=== PATIENT | female | born 1955 | race Caucasian/White ===

== ENCOUNTER 2017-10-26 08:00 | Emergency (ER) | payer OTHER ==
[~2017-10-26] VITALS: Ht 172.7 cm; Wt 101.6 kg
[~2017-10-26 08:00] MED LIST: DIAZ2 PO; ESTR2 PO; LEVSOD112 PO; METPRE4DP PO; NAPR500 PO; Norco 5-325 Ta1 EACH PO; OLME5TAB; SIMV40 PO; TELM40 PO
== END 2017-10-26 08:26 | disposition home or self-care (01) ==
LOC: ER 08:00
DX: J02.9 Acute pharyngitis, unspecified (principal); Z88.8 Allergy status to other drugs, medicaments and biological substances; Z79.899 Other long term (current) drug therapy; E03.9 Hypothyroidism, unspecified; E78.00 Pure hypercholesterolemia, unspecified; I10 Essential (primary) hypertension
CPT/HCPCS: 87081; 99283

== ENCOUNTER 2023-09-02 07:15 | Observation (INO) | payer OTHER ==
[~2023-09-02] VITALS: Ht 172.7 cm; Wt 108.0 kg
[2023-09-02] VITALS (9 sets, daily range): BP systolic 139–161; BP diastolic 71–86
[~2023-09-02 07:15] MED LIST changes: +FISH OIL + D31 EACH; +GABA300; +HYDR1TAB94; +Omeprazole20 M1
[2023-09-02] MEDS ORDERED: VALS80 PO (07:47)
[2023-09-02] MEDS ORDERED: Amlodipine Bes2.5 MG PO (07:47)
[2023-09-02] MEDS ORDERED: GABA300 PO (07:47)
[2023-09-02] MEDS ORDERED: PANT20 PO (07:48)
[2023-09-02] MEDS ORDERED: ATOR20 PO (07:48)
[2023-09-02] MEDS ORDERED: VAGIFEM10 MCG VAG (07:49)
[2023-09-02] MEDS ORDERED: SOLI5 PO (07:49)
[2023-09-02] MEDS ORDERED: VITAMIN D350 MC3 PO (07:50)
[2023-09-02] MEDS ORDERED: FISH OIL 1,0001 EA10 PO (07:51)
[2023-09-02] MEDS ORDERED: PRENATAL TABLE1 EAC2 PO (07:51)
[2023-09-02] MEDS ORDERED: ZYRTEC10 M1 PO (07:51)
[2023-09-02] MEDS ORDERED: DONEPEZIL HCL10 MG PO (07:52)
[2023-09-02] MEDS ORDERED: TRAZ50 PO (07:52)
[2023-09-02] MEDS ORDERED: MIRALAX17 GM PO (07:52)
[2023-09-02] MEDS ORDERED: Ketorolac Tromethamine 30mg Vial IV ONE (07:55)
[2023-09-02] MEDS ORDERED: NS 1,000 ML IV SCH (07:55)
[2023-09-02 08:00] LABS: Source, Urine Clean Catch
[2023-09-02 08:03] LABS: BASOPHILS ABSOLUTE AUTO 0.07 K/mm3 (0.00-0.23); BASOPHILS PERCENT AUTO 1 % (0-2); EOSINOPHILS ABSOLUTE AUTO 0.32 K/mm3 (0.00-0.68); EOSINOPHILS PERCENT AUTO 5 % (0-6); Hematocrit 41.2 % (33.0-51.0); Hemoglobin 14.3 g/dL (11.5-16.0); IMMATURE GRAN ABSOLUTE AUTO 0.02 K/mm3 (0.00-0.10); IMMATURE GRAN PERCENT AUTO 0 % (0-1); LYMPHOCYTES ABSOLUTE AUTO 1.98 K/mm3 (0.84-5.20); LYMPHOCYTES PERCENT AUTO 31 % (21-46); MONOCYTES ABSOLUTE AUTO 0.52 K/mm3 (0.16-1.47); MONOCYTES PERCENT AUTO 8 % (4-13); Mean Corpuscular HGB 30.4 pg (26.0-34.0); Mean Corpuscular HGB Conc 34.7 g/dL (31.5-36.5); Mean Corpuscular Volume 88 fL (80-100); Mean Platelet Volume 10.3 fL (9.1-12.4); NEUTROPHILS ABSOLUTE AUTO 3.56 K/mm3 (1.96-9.15); NEUTROPHILS PERCENT AUTO 55 % (41-73); Platelet Count 315 K/mm3 (150-400); RDW Coefficient Variation 11.7 % (11.7-14.2); RDW Standard Deviation 37.7 fL (35.1-46.3); White Blood Cell Count 6.47 K/mm3 (4.00-11.30)
[2023-09-02 08:04] LABS: Appearance, Urine Cloudy (Clear); Bilirubin, Urine Neg (Neg); Blood, Urine Neg (Neg); Color, Urine Yellow (P-Yellow); Glucose Qualitative, Urine Neg (Neg); Ketones, Urine Neg (Neg); Leukocyte Esterase, Urine Neg (Neg); Nitrite, Urine Neg (Neg); Protein, Urine 1+ (Neg); Urobilinogen, Urine NORM (Normal)
[2023-09-02 08:11] LABS: Amorphous Heavy (0-Heavy); Bacteria Rare /hpf; Red Blood Cells, Urine Not Seen /hpf (0-2); Squamous Epithelial Cells Rare /hpf (Few); White Blood Cells, Urine Not Seen /hpf (0-5)
[2023-09-02 08:26] LABS: Albumin, Blood 3.7 g/dL (3.4-5.0); Bilirubin, Total 0.6 mg/dL (0.1-1.0); Bun/Creatinine Ratio 14.1 (12.0-20.0); Creatinine, Blood 0.64 mg/dL (0.40-1.00); Globulin, Blood 3.6 g/dL (2.2-4.0); Potassium, Blood 3.3 mmol/L (3.5-5.5); Total Protein, Blood 7.3 g/dL (6.4-8.2)
[2023-09-02] MEDS ORDERED: CefOXitin Sodium 2,000 MG in NS 100 ML IV ONE (09:10)
[2023-09-02] MEDS ORDERED: Ondansetron 4 MG TAB PO PRN ×2 (10:50→10:55)
[2023-09-02] MEDS ORDERED: Acetaminophen 325 MG TABLET PO PRN ×2 (10:50→10:55)
[2023-09-02] MEDS ORDERED: Lactated Ringer's 1,000 ML IV SCH (10:50)
[2023-09-02] MEDS ORDERED: HYDROmorphone HCl 2 MG Tab PO PRN (10:50)
[2023-09-02] MEDS ORDERED: TraZODone HCl 50 MG Tab PO PRN (10:55)
[2023-09-02] MEDS ORDERED: propofoL 20 ML IV ONE (10:59)
[2023-09-02] MEDS ORDERED: FentaNYL Citrate 50 MCG/ML 2 ML Injection ONE ×2 (11:02→12:11)
[2023-09-02] MEDS ORDERED: Rocuronium Bromide 10 MG/ML 5ML Injection IV ONE (11:03)
[2023-09-02] MEDS ORDERED: EXCEDRIN PO (11:04)
[2023-09-02] MEDS ORDERED: Lidocaine HCl 2% Jelly 120MG/6ML SYR (20MG PER ML) ONE (11:06)
[2023-09-02] MEDS ORDERED: Ondansetron HCl 2 MG / ML 2ML Vial IV PRN (11:10)
[2023-09-02] MEDS ORDERED: Lidocaine HCl 1% 5 ML SYR INJ ONE ×2 (11:10)
[2023-09-02] MEDS ORDERED: FentaNYL Citrate 50 MCG/ML 2 ML Injection IV PRN ×2 (11:10→11:15)
[2023-09-02] MEDS ORDERED: HYDROmorphone HCl/Pf 1MG SYR IV PRN (11:10)
[2023-09-02] MEDS ORDERED: Midazolam HCl 1MG / ML 2ML Vial IV ONE ×2 (11:10)
[2023-09-02] MEDS ORDERED: Bupivacaine 0.5% HCl 5 MG/ML 30MLVIAL ONE (11:11)
[2023-09-02] MEDS ORDERED: Dexamethasone Sod Phos 10 MG/ML 1ML VIAL ONE (11:56)
[2023-09-02] MEDS ORDERED: Ondansetron HCl 2 MG / ML 2ML Vial ONE (11:56)
[2023-09-02] MEDS ORDERED: Glycopyrrolate 0.2 MG/ML 5ML VIAL ONE (12:09)
[2023-09-02] MEDS ORDERED: Sugammadex Sodium 200 MG/2ML SDV (100 MG/ML) ONE (12:15)
[2023-09-02] MEDS ORDERED: Flumazenil 0.1 MG / ML 5ML Vial ONE (12:31)
[2023-09-02] MEDS ORDERED: OxyCODONE HCL 5 MG TAB PO PRN (12:35)
[2023-09-02] MEDS ORDERED: Ketorolac Tromethamine 30mg Vial IV PRN (12:40)
--- NOTE | 2023-09-02 14:40 | NUR ---
RESTING IN BED, TYLENOL GIVEN FOR INCISIONAL PAIN 2/10, DENIES ANY NAUSEA, PT HAS BEEN UP TO VOID, TOLERATED REGULAR DIET WELL, CONT. TO MONITOR FOR ANY CHANGES.
[2023-09-02] MEDS ORDERED: OXYC5 PO (15:25)
--- NOTE | 2023-09-02 16:28 | NUR ---
PT HAS VOIDED AND AMBULATED DOWN THE HALLS, TOLERATED WELL, REPORTS PAIN IS TOLERABLE WITH TYLENOL, HAS RX FOR OXYCODONE, TOLERATED REGULAR FOOD WELL, PT DC'D HOME WITH FAMILY, DC INSTRUCTIONS GIVEN, VERBALIZED UNDERSTANDING.
[2023-09-02] MEDS ORDERED: Gabapentin 300 MG Cap PO SCH (21:00)
[2023-09-02] MEDS ORDERED: AmLODIPine Besylate 5 MG Tab PO SCH (21:00)
[2023-09-02] MEDS ORDERED: Famotidine 20 MG Tab PO SCH ×2 (21:00)
[2023-09-02] MEDS ORDERED: Lactobacil 2-S.Thermo-Bifido 1 1 Cap PO SCH ×2 (21:00)
[2023-09-03] MEDS ORDERED: Atorvastatin 10 MG Tab PO SCH (09:00)
[2023-09-03] MEDS ORDERED: Enoxaparin 40 MG/0.4 ML SYR SC SCH ×2 (09:00)
== END 2023-09-02 16:25 | disposition home or self-care (01) ==
LOC: ER 07:15 → SURS 07:16 → ER 10:40 → SURS 10:44 → ER 10:44 → SURS 10:44 → ER 10:54 → SURS 13:14
PROVIDERS: Emergency Medicine; ADMIT Surgery
PROC: 0DTJ4ZZ Resection of Appendix, Percutaneous Endoscopic Approach (ICD-10-PCS; principal; 2023-09-02 07:30)
DX: K35.80 Unspecified acute appendicitis (principal); E03.9 Hypothyroidism, unspecified; I10 Essential (primary) hypertension; E78.00 Pure hypercholesterolemia, unspecified; G47.33 Obstructive sleep apnea (adult) (pediatric); M19.90 Unspecified osteoarthritis, unspecified site; Z72.0 Tobacco use
CPT/HCPCS: 74176; 80053; 81001; 85025; 93005; 93010; 96361; 96365; 96375; 99285-25; A9270; J0694; J1100; J1885; J2250; J2405; J2704; J3010; J7030; J7120

== ENCOUNTER 2023-11-04 09:28 | Day surgery (SDC) | payer OTHER ==
[~2023-11-04] VITALS: Ht 167.6 cm; Wt 110.0 kg
[~2023-11-04 09:28] MED LIST changes: +ATOR20 PO; +Amlodipine Bes2.5 MG PO; +DONEPEZIL HCL10 MG PO; +EXCEDRIN PO; +FISH OIL 1,0001 EA10 PO; +GABA300 PO; +Lactated Ringer's 1,000 ML IV SCH; +MIRALAX17 GM PO; +OXYC5 PO; +PANT20 PO; +PRENATAL TABLE1 EAC2 PO; +SOLI5 PO; +TRAZ50 PO; +VAGIFEM10 MCG TOP; +VALS80 PO; +VITAMIN D350 MC3 PO; +ZYRTEC10 M1 PO
[2023-11-04] MEDS ORDERED: EXCEDRIN PO (10:08)
[2023-11-04] MEDS ORDERED: IBUP200 PO (10:09)
[2023-11-04 10:19] VITALS: BP 158/76
[2023-11-04] MEDS ORDERED: propofoL 60 ML IV ONE (11:20)
--- NOTE | 2023-11-04 11:36 | NUR ---
11/04/23 1136 Buddy Jewell MONITOR INTACT WITH CONTINUOUS PULSE OXIMETRY, CONTINUOUS END TITAL CO2, AND INTERMITTENT BLOOD PRESSURE.AND EKG SEE ANESTHESIA RECORD
[2023-11-04 12:06] VITALS: BP 141/73
[2023-11-04 12:10] VITALS: BP 165/98
[2023-11-04 12:25] VITALS: BP 184/94
[2023-11-04 12:26] VITALS: BP 158/79
--- NOTE | 2023-11-04 12:29 | NUR ---
1206 REPORT RECEIVED FROM NOAH HUNTER. PT ON RA. VSS. PT ABLE TO REPOSITION SELF IN BED. PT REQUESTING PO FOOD AND FLUIDS AND TOLERATING THEM WELL. PT HAS NO COMPLAINTS.
--- NOTE | 2023-11-04 12:30 | NUR ---
Patient up to Ambulate independently. Gait steady. VSS AND CONSISTENT WITH PT BASELINE. PT STATES SHE WILL TAKE HER BP MEDICINE AT HOME TONIGHT. PT HAS NO COMPLAINTS AND VERBALIZES READINESS TO GO HOME. Discharge instructions reviewed with patient. Patient verbalizes understanding. Copy given to patient to take home. Patient States Post-Procedure ride home has been arranged. Discharged via wheelchair to private car for ride home. PT BELONGINGS RETURNED TO PT.
== END 2023-11-04 12:38 | disposition home or self-care (01) ==
LOC: ORSCMMR 09:28 → ORD 10:45 → ORSCSDS 10:45 → ORSCMMR 12:38
PROVIDERS: Surgery
PROC: 0DJD8ZZ Inspection of Lower Intestinal Tract, Via Natural or Artificial Opening Endoscopic (ICD-10-PCS; principal; 2023-11-04 10:45)
DX: Z12.11 Encounter for screening for malignant neoplasm of colon (principal); Z86.010 Personal history of colon polyps; K57.30 Diverticulosis of large intestine without perforation or abscess without bleeding; I10 Essential (primary) hypertension; G47.30 Sleep apnea, unspecified; F32.A Depression, unspecified; E78.5 Hyperlipidemia, unspecified; E66.01 Morbid (severe) obesity due to excess calories; Z68.39 Body mass index [BMI] 39.0-39.9, adult; Z79.899 Other long term (current) drug therapy
CPT/HCPCS: J2704; J7120

== ENCOUNTER 2024-01-03 11:11 | Day surgery (SDC) | payer OTHER ==
[~2024-01-03] VITALS: Ht 172.7 cm; Wt 112.2 kg
[2024-01-03] VITALS (18 sets, daily range): BP systolic 138–194; BP diastolic 23–90
[~2024-01-03 11:11] MED LIST changes: +IBUP200 PO; -Lactated Ringer's 1,000 ML IV SCH; -VAGIFEM10 MCG TOP; +VAGIFEM10 MCG VAG
[2024-01-03] MEDS ORDERED: Ropivacaine 0.5% HCl/Pf 123.125 MG,EPINEPHrine HCL 0.25 MG,Ketorolac Tromethamine 15 MG... INFIL SCH (11:35)
[2024-01-03] MEDS ORDERED: OxyCODONE HCL 5 MG TAB PO PRN ×2 (11:35→12:05)
[2024-01-03] MEDS ORDERED: Acetaminophen 500 MG Tab PO SCH ×2 (11:35→12:05)
[2024-01-03] MEDS ORDERED: CeFAZolin Sodium 2,000 MG in NS 100 ML IV SCH ×2 (11:35→21:00)
[2024-01-03] MEDS ORDERED: Vancomycin HCL 1,000 MG in NS 250 ML IV SCH (11:35)
[2024-01-03] MEDS ORDERED: Lactated Ringer's 1,000 ML IV SCH ×2 (11:35→11:45)
[2024-01-03] MEDS ORDERED: Tranexamic Acid 100 ML IV SCH (11:35)
[2024-01-03] MEDS ORDERED: OxyCODONE HCL 10 MG TABCR PO SCH (11:35)
[2024-01-03] MEDS ORDERED: Chlorhexidine Mouth Care 15 ML UDC MT SCH (11:35)
[2024-01-03] MEDS ORDERED: HYDROmorphone HCl/Pf 1MG SYR IV PRN (11:40)
[2024-01-03] MEDS ORDERED: DiphenhydrAMINE HCL 25 MG Cap PO PRN (11:40)
[2024-01-03] MEDS ORDERED: Bisacodyl 10 MG Supp PR PRN (11:40)
[2024-01-03] MEDS ORDERED: Ondansetron HCl 2 MG / ML 2ML Vial IV PRN (11:45)
[2024-01-03] MEDS ORDERED: Metoclopramide HCl 5MG / ML 2ML Vial IV PRN (11:45)
[2024-01-03] MEDS ORDERED: Magnesium Hydroxide Conc 10 ML UDC PO PRN (11:45)
[2024-01-03] MEDS ORDERED: Ketorolac Tromethamine 15mg Vial IV SCH (12:00)
[2024-01-03] MEDS ORDERED: Promethazine HCl 25 MG Tab PO PRN (12:10)
--- NOTE | 2024-01-03 12:32 | NUR ---
Ambulatory in Day Surgery. History, Chart, Medications and Allergies reviewed before start of procedure. Lungs clear T/O to Auscultation. Patient confirms NPO status and agrees with scheduled surgery. Pre-Op teaching done. Pt verbalizes understanding. PT BELONGINGS PLACED UNDERNEATH GURNEY FOR SAFEKEEPING. PT GLASSES TAKEN TO PACU FOR SAFEKEEPING.
[2024-01-03] MEDS ORDERED: Ondansetron HCl 2 MG / ML 2ML Vial ONE (13:34)
[2024-01-03] MEDS ORDERED: Dexamethasone Sod Phos 10 MG/ML 1ML VIAL ONE (13:34)
[2024-01-03] MEDS ORDERED: propofoL 20 ML IV ONE ×4 (13:34→15:05)
[2024-01-03] MEDS ORDERED: Midazolam HCl 1MG / ML 2ML Vial ONE (13:34)
[2024-01-03] MEDS ORDERED: ePHEDrine Sulfate 50 MG/ML 1ML Injection ONE (14:02)
--- NOTE | 2024-01-03 14:19 | NUR ---
01/03/24 Savita Rothman PRIOR TO ARRIVING IN THE OR, PATIENT RECEIVED VANCO 1GM IV IN THE PREOP SETTING.
[2024-01-03] MEDS ORDERED: Famotidine 10 MG/ML 2ML Vial IV ONE (15:55)
[2024-01-03] MEDS ORDERED: HYDROmorphone HCl/Pf 1MG SYR ONE ×2 (16:00→16:12)
[2024-01-03] MEDS ORDERED: Metoclopramide HCl 5MG / ML 2ML Vial ONE (16:42)
[2024-01-03] MEDS ORDERED: Docusate Sodium 100 MG Cap PO SCH (21:00)
[2024-01-03] MEDS ORDERED: Donepezil HCl 5 MG Tab PO SCH (21:00)
[2024-01-04 00:19] VITALS: BP 124/63
[2024-01-04 03:51] VITALS: BP 126/63
--- NOTE | 2024-01-04 04:45 | NUR ---
SHIFT SUMMARY ANIBAL WAS ALERT AND FULLY ORIENTED ON ASSESSMENT. PAIN WELL MANAGED. PT UP AMBULATING WELL TO BR W/ FWW, GB, AND 1P ASSIST. PT WAS NAUSEOUS AT START OF SHIFT WITH DRY HEAVING AND SCANT REGURGITATION. MEDICATED PER EMAR W/ RELIEF OF SYMPTOMS. PT IV TO LFA INFILTRATED WHILE RUNING PLAIN FLUIDS AND BECAME SWOLLEN, NO REDNESS NOTED AT THIS TIME, MINIMAL DISCOMFORT. NEW IV PLACED TO RFA BY ELSA DOYLE. PT INCISION TO R KNEE IS C/D/I, SENSATION INTACT, PEDAL PULSES PALPATED. NO ACUTE EVENTS TONIGHT.
[2024-01-04 06:15] LABS: BASOPHILS ABSOLUTE AUTO 0.06 K/mm3 (0.00-0.23); BASOPHILS PERCENT AUTO 1 % (0-2); EOSINOPHILS ABSOLUTE AUTO 0.07 K/mm3 (0.00-0.68); EOSINOPHILS PERCENT AUTO 1 % (0-6); Hematocrit 33.9 % (33.0-51.0); Hemoglobin 11.5 g/dL (11.5-16.0); IMMATURE GRAN ABSOLUTE AUTO 0.03 K/mm3 (0.00-0.10); IMMATURE GRAN PERCENT AUTO 0 % (0-1); LYMPHOCYTES ABSOLUTE AUTO 1.35 K/mm3 (0.84-5.20); LYMPHOCYTES PERCENT AUTO 12 % (21-46); MONOCYTES ABSOLUTE AUTO 0.68 K/mm3 (0.16-1.47); MONOCYTES PERCENT AUTO 6 % (4-13); Mean Corpuscular HGB 30.3 pg (26.0-34.0); Mean Corpuscular HGB Conc 33.9 g/dL (31.5-36.5); Mean Corpuscular Volume 89 fL (80-100); Mean Platelet Volume 10.3 fL (9.1-12.4); NEUTROPHILS PERCENT AUTO 81 % (41-73); Platelet Count 317 K/mm3 (150-400); RDW Coefficient Variation 11.9 % (11.7-14.2); RDW Standard Deviation 37.9 fL (35.1-46.3); White Blood Cell Count 11.69 K/mm3 (4.00-11.30)
[2024-01-04 06:35] LABS: Bun/Creatinine Ratio 13.8 (12.0-20.0); Creatinine, Blood 0.58 mg/dL (0.40-1.00); Potassium, Blood 3.4 mmol/L (3.5-5.5)
[2024-01-04] MEDS ORDERED: Aspir 8181 MG PO (07:20)
[2024-01-04] MEDS ORDERED: Percocet 5-3251 EACH PO (07:20)
[2024-01-04] MEDS ORDERED: DOCU100 PO (07:20)
[2024-01-04 07:43] VITALS: BP 141/64
[2024-01-04] MEDS ORDERED: Aspirin 81 MG Chew PO SCH (09:00)
--- NOTE | 2024-01-04 12:52 | NUR ---
DISCHARGE POD1 R TKA, AQUACEL CDI, TEDS/POLAR PAU. A&OX4, VSS/RA, LEN PO, VOIDING, AMB FWW, UP TO CHAIR, WORKED WITH PHYSICAL THERAPY, IV DC'D. DC INS PROVIDED. PT REP UNDERSTANDING THOSE INSTRUCTIONS INCLUDING ASA BID, PAIN MED/MGMT, STOOL SOFTENER, SHORT FREQU AMB W/FWW AND ICE/ELEVATE REST PERIODS, OUTPT PT, DRESSING CHANGES, OK TO SHOWER ONLY. LEFT FLOOR VIA WC WITH TOWER OBSERVER TO GO HOME WITH ALL PERSONAL POSSESSIONS INCLUDING DC PACKET, AQUACEL DRESSINGS, POLAR PAU.
== END 2024-01-04 09:45 | disposition home or self-care (01) ==
LOC: ORSCMMR 11:11 → ORD 12:30 → ORSCMMR 16:43 → SURS 16:43 → ORSCMMR 01-04 09:45 → SURS 01-04 09:45
PROVIDERS: Orthopaedic Surgery
PROC: 8E0Y0CZ Robotic Assisted Procedure of Lower Extremity, Open Approach (ICD-10-PCS; principal; 2024-01-03 12:30)
PROC: 0SRC0JA Replacement of Right Knee Joint with Synthetic Substitute, Uncemented, Open Approach (ICD-10-PCS; principal; 2024-01-03 12:30)
DX: M17.11 Unilateral primary osteoarthritis, right knee (principal); E11.9 Type 2 diabetes mellitus without complications; I10 Essential (primary) hypertension; E78.5 Hyperlipidemia, unspecified; F32.A Depression, unspecified; Z79.899 Other long term (current) drug therapy; E66.9 Obesity, unspecified; Z68.38 Body mass index [BMI] 38.0-38.9, adult
CPT/HCPCS: 36415; 73560-RT; 80048; 85025; 97110; 97116; 97162; 97530; A9270; C1713; C1776; J0171; J0690; J0735; J1100; J1170; J1885; J2250; J2405; J2704; J2765; J2795; J3370; J7050; J7120

== ENCOUNTER 2024-05-10 06:10 | Day surgery (SDC) | payer OTHER ==
[2024-05-10] VITALS (15 sets, daily range): BP systolic 97–159; BP diastolic 55–93
[~2024-05-10] VITALS: Ht 172.7 cm; Wt 110.6 kg
[~2024-05-10 06:10] MED LIST changes: +Aspir 8181 MG PO; +CLIMARA1 EACH; +DOCU100 PO; +ERGO400 PO; +Percocet 5-3251 EACH PO; +ZYRTEC10 M2 PO
[2024-05-10] MEDS ORDERED: Acetaminophen 500 MG Tab PO SCH ×2 (06:25→16:00)
[2024-05-10] MEDS ORDERED: OxyCODONE HCL 10 MG TABCR PO SCH (06:25)
[2024-05-10] MEDS ORDERED: Chlorhexidine Mouth Care 15 ML UDC MT SCH (06:25)
[2024-05-10] MEDS ORDERED: Ropivacaine 0.5% HCl/Pf 123.125 MG,EPINEPHrine HCL 0.25 MG,Ketorolac Tromethamine 15 MG... INFIL SCH (06:25)
[2024-05-10] MEDS ORDERED: Lactated Ringer's 1,000 ML IV SCH ×2 (06:25→08:15)
[2024-05-10] MEDS ORDERED: CeFAZolin Sodium 2,000 MG in NS 100 ML IV SCH ×2 (06:25→16:00)
[2024-05-10] MEDS ORDERED: Tranexamic Acid 100 ML IV SCH (06:28)
--- NOTE | 2024-05-10 07:37 | NUR ---
PRE-OP PT AMBULATING INTO SDS. PT VERIFYING HER MEDICATIONS AND CONFIRMS NPO STATUS. PT DENIES USE OF ASPIRIN OR ANY BLOOD THINNERS. PT REPORTS TAKING CHG SHOWERS X2 AT HOME. VITAL SIGNS DONE AND IV PLACED. OBINNA VANEGAS AND SCD ON RLE. PT'S SISTER AT BEDSIDE. AWAITING PROVIDERS AT THIS TIME.
[2024-05-10] MEDS ORDERED: Estradiol 0.025 MG/24 Patch TOP SCH (08:00)
[2024-05-10] MEDS ORDERED: TraZODone HCl 50 MG Tab PO PRN (08:05)
[2024-05-10] MEDS ORDERED: Metoclopramide HCl 5MG / ML 2ML Vial IV PRN (08:05)
[2024-05-10] MEDS ORDERED: Magnesium Hydroxide Conc 10 ML UDC PO PRN (08:10)
[2024-05-10] MEDS ORDERED: Ondansetron HCl 2 MG / ML 2ML Vial IV PRN (08:10)
[2024-05-10] MEDS ORDERED: OxyCODONE HCL 5 MG TAB PO PRN ×2 (08:10)
[2024-05-10] MEDS ORDERED: Bisacodyl 10 MG Supp PR PRN (08:15)
[2024-05-10] MEDS ORDERED: HYDROmorphone HCl/Pf 1MG SYR IV PRN (08:15)
[2024-05-10] MEDS ORDERED: DiphenhydrAMINE HCL 25 MG Cap PO PRN (08:15)
[2024-05-10] MEDS ORDERED: FLU VACC TS2024-25(6MOS UP)/PF 45 MCG/0.5 ML SYRINGE IM PRN (08:15)
[2024-05-10] MEDS ORDERED: FentaNYL Citrate 50 MCG/ML 2 ML Injection ONE (08:26)
[2024-05-10] MEDS ORDERED: Phenylephrine HCl 10mg/ml 1 ml Vial ONE (08:27)
[2024-05-10] MEDS ORDERED: propofoL 60 ML IV ONE (08:49)
[2024-05-10] MEDS ORDERED: Glycopyrrolate 0.2 MG/ML 5ML VIAL ONE (08:57)
[2024-05-10] MEDS ORDERED: Gabapentin 300 MG Cap PO SCH (09:00)
[2024-05-10] MEDS ORDERED: AmLODIPine Besylate 5 MG Tab PO SCH (09:00)
[2024-05-10] MEDS ORDERED: Docusate Sodium 100 MG Cap PO SCH (09:00)
[2024-05-10] MEDS ORDERED: ePHEDrine Sulfate 50 MG/ML 1ML Injection ONE (09:16)
[2024-05-10] MEDS ORDERED: HYDROmorphone HCl/Pf 1MG SYR ONE (10:27)
[2024-05-10] MEDS ORDERED: Ketorolac Tromethamine 15mg Vial IV SCH (12:00)
[2024-05-10] MEDS ORDERED: ESTRADIOL42.5 GM VAG (13:48)
[2024-05-10] MEDS ORDERED: ESTRADIOL1 MG PO (13:50)
--- NOTE | 2024-05-10 14:41 | NUR ---
ATIYA/PHYS THERAPY IN TO SEE PT.
[2024-05-10] MEDS ORDERED: Trospium Chloride 20 MG Tab PO SCH (16:30)
--- NOTE | 2024-05-10 17:15 | NUR ---
SUMMARY NO ACUTE CHANGES SINCE ARRIVING TO UNIT FROM PACU. PT HAS VOIDED AND GOTTEN UP TO CHAIR AND WORKED WITH THERAPY. MEDICATED PT PER ORDERS FOR NAUSEA DURING DAY. PT HAD SMALL AMOUNTS OF EMESIS PRIOR TO MEDICATION. REPORTS IMPROVED AT THIS TIME. UP IN RECLINER. CALL LIGHT IN REACH.
[2024-05-10] MEDS ORDERED: Donepezil HCl 5 MG Tab PO SCH (21:00)
[2024-05-10] MEDS ORDERED: Atorvastatin 10 MG Tab PO SCH (21:00)
[2024-05-11 03:53] VITALS: BP 141/69
[2024-05-11] MEDS ORDERED: Pantoprazole Sodium 20 MG Tab PO SCH (06:00)
[2024-05-11 06:13] LABS: BASOPHILS ABSOLUTE AUTO 0.06 K/mm3 (0.00-0.23); BASOPHILS PERCENT AUTO 1 % (0-2); EOSINOPHILS ABSOLUTE AUTO 0.05 K/mm3 (0.00-0.68); EOSINOPHILS PERCENT AUTO 0 % (0-6); Hematocrit 34.1 % (33.0-51.0); Hemoglobin 11.6 g/dL (11.5-16.0); IMMATURE GRAN ABSOLUTE AUTO 0.06 K/mm3 (0.00-0.10); IMMATURE GRAN PERCENT AUTO 1 % (0-1); LYMPHOCYTES ABSOLUTE AUTO 1.23 K/mm3 (0.84-5.20); LYMPHOCYTES PERCENT AUTO 10 % (21-46); MONOCYTES ABSOLUTE AUTO 0.96 K/mm3 (0.16-1.47); MONOCYTES PERCENT AUTO 8 % (4-13); Mean Corpuscular HGB 30.4 pg (26.0-34.0); Mean Corpuscular Volume 90 fL (80-100); Mean Platelet Volume 10.2 fL (9.1-12.4); NEUTROPHILS ABSOLUTE AUTO 9.92 K/mm3 (1.96-9.15); NEUTROPHILS PERCENT AUTO 81 % (41-73); Platelet Count 253 K/mm3 (150-400); RDW Coefficient Variation 12.6 % (11.7-14.2); RDW Standard Deviation 41.4 fL (35.1-46.3); Red Blood Cell Count 3.81 M/mm3 (3.80-5.20); White Blood Cell Count 12.28 K/mm3 (4.00-11.30)
--- NOTE | 2024-05-11 06:19 | NUR ---
NOC SUMMARY-PT PAIN MANAGED WELL. PT AMBULATORY AND VOIDING. PT TOLERATING PO FLUIDS. POLAR PACK ON AND DRESSING C/D/I. CALL LIGHT IN REACH.
[2024-05-11 06:26] LABS: Bun/Creatinine Ratio 13.4 (12.0-20.0); Calcium, Blood 8.3 mg/dL (8.5-10.1); Creatinine, Blood 0.6 mg/dL (0.40-1.00); Potassium, Blood 3.3 mmol/L (3.5-5.5)
[2024-05-11 07:39] VITALS: BP 136/66
[2024-05-11] MEDS ORDERED: CLIMARA1 EACH TOP (07:45)
[2024-05-11] MEDS ORDERED: ASPI81CH PO (07:46)
[2024-05-11] MEDS ORDERED: ONDA4 PO (08:51)
[2024-05-11] MEDS ORDERED: Loratadine 10 MG Tab PO SCH (09:00)
[2024-05-11] MEDS ORDERED: Aspirin 81 MG Chew PO SCH (09:00)
[2024-05-11] MEDS ORDERED: Cholecalciferol 1000 Unit Tablet (=25MCG) PO SCH (09:00)
[2024-05-11] MEDS ORDERED: Losartan Potassium 50 MG Tab PO SCH (09:00)
== END 2024-05-11 09:16 | disposition home or self-care (01) ==
LOC: ORSCMMR 06:10 → ORD 08:00 → ORSCMMR 08:30 → SURS 11:11 → ORSCMMR 05-11 09:16
PROVIDERS: Orthopaedic Surgery
PROC: 0SRD0JA Replacement of Left Knee Joint with Synthetic Substitute, Uncemented, Open Approach (ICD-10-PCS; principal; 2024-05-10 08:30)
DX: M17.12 Unilateral primary osteoarthritis, left knee (principal); Z96.651 Presence of right artificial knee joint; I10 Essential (primary) hypertension; E78.5 Hyperlipidemia, unspecified; G47.33 Obstructive sleep apnea (adult) (pediatric); E11.9 Type 2 diabetes mellitus without complications; F32.A Depression, unspecified; E66.9 Obesity, unspecified; Z68.37 Body mass index [BMI] 37.0-37.9, adult; Z79.899 Other long term (current) drug therapy
CPT/HCPCS: 36415; 73560-LT; 80048; 82947; 85025; 97110; 97116; 97162; A9270; C1776; J0171; J0690; J0735; J1171; J1885; J2371; J2405; J2470; J2704; J2765; J2795; J3010; J7120

== ENCOUNTER 2024-05-22 16:12 | Emergency (ER) | payer OTHER ==
[~2024-05-22] VITALS: Ht 172.7 cm; Wt 104.3 kg
[~2024-05-22 16:12] MED LIST changes: +ASPI81CH PO; +CLIMARA1 EACH TOP; +ESTRADIOL1 MG PO; +ESTRADIOL42.5 GM VAG; +ONDA4 PO
[2024-05-22 16:54] VITALS: BP 162/85
[2024-05-22 17:27] LABS: BASOPHILS ABSOLUTE AUTO 0.07 K/mm3 (0.00-0.23); BASOPHILS PERCENT AUTO 0 % (0-2); EOSINOPHILS ABSOLUTE AUTO 0.02 K/mm3 (0.00-0.68); EOSINOPHILS PERCENT AUTO 0 % (0-6); Hematocrit 38.4 % (33.0-51.0); Hemoglobin 12.7 g/dL (11.5-16.0); IMMATURE GRAN ABSOLUTE AUTO 0.07 K/mm3 (0.00-0.10); IMMATURE GRAN PERCENT AUTO 0 % (0-1); LYMPHOCYTES ABSOLUTE AUTO 1.46 K/mm3 (0.84-5.20); LYMPHOCYTES PERCENT AUTO 9 % (21-46); MONOCYTES ABSOLUTE AUTO 1.02 K/mm3 (0.16-1.47); MONOCYTES PERCENT AUTO 6 % (4-13); Mean Corpuscular HGB 30.5 pg (26.0-34.0); Mean Corpuscular HGB Conc 33.1 g/dL (31.5-36.5); Mean Corpuscular Volume 92 fL (80-100); NEUTROPHILS ABSOLUTE AUTO 14.34 K/mm3 (1.96-9.15); NEUTROPHILS PERCENT AUTO 85 % (41-73); Platelet Count 536 K/mm3 (150-400); RDW Coefficient Variation 13.6 % (11.7-14.2); RDW Standard Deviation 44.9 fL (35.1-46.3); Red Blood Cell Count 4.17 M/mm3 (3.80-5.20); White Blood Cell Count 16.98 K/mm3 (4.00-11.30)
[2024-05-22 17:49] LABS: Albumin, Blood 3.4 g/dL (3.4-5.0); Albumin/Globulin Ratio 0.8 (0.8-1.8); Bilirubin, Total 0.6 mg/dL (0.1-1.0); Bun/Creatinine Ratio 19.1 (12.0-20.0); Calcium, Blood 9.1 mg/dL (8.5-10.1); Creatinine, Blood 0.73 mg/dL (0.40-1.00); Globulin, Blood 4.2 g/dL (2.2-4.0); Potassium, Blood 3.9 mmol/L (3.5-5.5); Total Protein, Blood 7.6 g/dL (6.4-8.2)
[2024-05-22] MEDS ORDERED: BISA5EC PO (20:40)
== END 2024-05-22 20:54 | disposition home or self-care (01) ==
LOC: ER 16:12
PROVIDERS: Student in an Organized Health Care Education/Training Program
DX: K59.00 Constipation, unspecified (principal); K64.9 Unspecified hemorrhoids; I10 Essential (primary) hypertension; E78.00 Pure hypercholesterolemia, unspecified; Z88.8 Allergy status to other drugs, medicaments and biological substances; Z79.899 Other long term (current) drug therapy; Z79.82 Long term (current) use of aspirin
CPT/HCPCS: 74177; 80053; 85025; 86850; 86900; 86901; 99284-25; Q9967